=== PATIENT | male | born 1940 | race Caucasian/White ===

== ENCOUNTER → 2020-06-20 | Outpatient (CLI) | payer MEDICARE, OTHER ==
[~2020-06-20] MED LIST: ALPRAZOLAM0.5 MG PO; ASPIRIN CHEWABL81 MG PO; B COMPLEX1 EACH PO; BETAPACE 80MG T80 MG PO; CATAPRES 0.1MG0.1 MG PO; CLARITIN 10MG T10 MG PO; DILTIAZEM 24HR240 M1 PO; ELIQUIS 5 MG TAB5 MG PO; FLOMAX 0.4 MG0.4 MG PO; FLONASE 0.05% N16 GM; HYDRALAZINE HCL50 MG PO; HYDROCHLOROTHIA25 MG PO; HYDROCODONE-AC1 EAC1 PO; ISOSORBIDE MONO30 MG PO; KLOR-CON M1010 MEQ PO; LASIX20 MG PO; LEVAQUIN500 MG PO; LIPITOR TAB 2020 MG PO; MEGACE TAB 40 M40 MG PO; METOPROLOL SUCC25 MG PO; NITROSTAT0.4 MG SL; OMEPRAZOLE20 MG PO; PHILLIPS' LAXA100 MG PO; PROBIOTIC1 EAC1 PO; RA SENNA PLUS1 EACH PO; STRESS FORMULA1 EACH PO; TYLENOL W/CODEIN1 E1 PO; VITAMIN D250000 UNIT PO
== END ==
LOC: KOH-I 14:06
DX: R60.9 Edema, unspecified (principal); M79.605 Pain in left leg; R19.01 Right upper quadrant abdominal swelling, mass and lump; Z79.899 Other long term (current) drug therapy; Z01.89 Encounter for other specified special examinations
CPT/HCPCS: 93971

== ENCOUNTER → 2020-08-17 | Outpatient (CLI) | payer MEDICARE, OTHER ==
[~2020-08-17] VITALS: Ht 170.2 cm; Wt 65.8 kg
== END ==
LOC: OPSV 10:24
DX: E87.6 Hypokalemia (principal)
CPT/HCPCS: 84132; 96365; 96366; J3480

== ENCOUNTER 2020-09-25 12:35 | Inpatient (IN) | payer MEDICARE, OTHER ==
[~2020-09-25] VITALS: Ht 170.2 cm; Wt 60.5 kg
[~2020-09-25 12:35] MED LIST changes: -HYDROCODONE-AC1 EAC1 PO; -KLOR-CON M1010 MEQ PO; -LASIX20 MG PO; -MEGACE TAB 40 M40 MG PO
[2020-09-25 14:38] LABS: RED BLOOD COUNT 4.34 M/UL (4.20-5.50); WHITE BLOOD COUNT 8.6 K/UL (4.5-11.0)
[2020-09-25] MEDS ORDERED: MEGACE TAB 40 M40 MG PO (20:58)
[2020-09-25] MEDS ORDERED: HYDROCODONE-AC1 EAC1 PO (21:00)
--- NOTE | 2020-09-25 21:13 | NUR ---
2104- CONTACTED JENNIFER TRACTOR OPERATOR TO GET A TELE BOX TO PLACE PT ON TELEMETRY MONITORING. JENNIFER NOTIFIED ME THAT THE HOSPITAL IS CURRENTLY OUT OF TELE BOXES. NOTIFIED LATIN DANCER. AWAITING TELE BOX AT THIS TIME.
[2020-09-26 04:24] LABS: HEMOGLOBIN 11.9 gm/dl (14.0-17.5); RED BLOOD COUNT 3.93 M/UL (4.20-5.50); WHITE BLOOD COUNT 7.5 K/UL (4.5-11.0)
[2020-09-27 06:02] LABS: HEMOGLOBIN 12.8 gm/dl (14.0-17.5); RED BLOOD COUNT 4.29 M/UL (4.20-5.50); WHITE BLOOD COUNT 11.4 K/UL (4.5-11.0)
[2020-09-27 06:45] LABS: BUN/CREATININE RATIO 15 (0-10)
[2020-09-27] MEDS ORDERED: KLOR-CON M1010 MEQ PO (11:18)
== END 2020-09-27 12:21 | disposition home or self-care (01) | DRG 682 ==
LOC: ER1 12:35 → MED SURG 4 16:05 → CDU 16:05 → MED SURG 4 20:18
PROVIDERS: Physician Assistant; ADMIT Internal Medicine
DX: N17.9 Acute kidney failure, unspecified (principal); E43 Unspecified severe protein-calorie malnutrition; C64.9 Malignant neoplasm of unspecified kidney, except renal pelvis; E87.6 Hypokalemia; E83.42 Hypomagnesemia; I10 Essential (primary) hypertension; I48.0 Paroxysmal atrial fibrillation; E78.5 Hyperlipidemia, unspecified; Z95.0 Presence of cardiac pacemaker; Z68.20 Body mass index [BMI] 20.0-20.9, adult; Z20.822 Contact with and (suspected) exposure to COVID-19; R19.7 Diarrhea, unspecified
CPT/HCPCS: 36415; 36591; 71045; 80048; 80053; 81001; 83735; 84100; 84132; 85025; 87449; 93005; 96365; 99285; J2405; J3480; U0002

== ENCOUNTER → 2020-10-15 | Outpatient (CLI) | payer MEDICARE, OTHER ==
[~2020-10-15] MED LIST changes: +HYDROCODONE-AC1 EAC1 PO; +KLOR-CON M1010 MEQ PO; +LASIX20 MG PO; +MEGACE TAB 40 M40 MG PO
== END ==
LOC: CT 08:06
DX: Z01.89 Encounter for other specified special examinations (principal); R19.01 Right upper quadrant abdominal swelling, mass and lump; R19.09 Other intra-abdominal and pelvic swelling, mass and lump; C74.91 Malignant neoplasm of unspecified part of right adrenal gland; N28.89 Other specified disorders of kidney and ureter; Z79.899 Other long term (current) drug therapy
CPT/HCPCS: 71260; Q9967

== ENCOUNTER 2020-10-23 16:36 | Emergency (ER) | payer MEDICARE, OTHER ==
[~2020-10-23 16:36] MED LIST changes: -LASIX20 MG PO
[2020-10-23 20:20] LABS: HEMOGLOBIN 12.6 gm/dl (14.0-17.5); RED BLOOD COUNT 4.12 M/UL (4.20-5.50); WHITE BLOOD COUNT 8.3 K/UL (4.5-11.0)
[2020-10-23 21:16] LABS: BUN/CREATININE RATIO 11 (0-10)
[2020-10-23] MEDS ORDERED: KLOR-CON M1010 MEQ PO (22:06)
== END 2020-10-23 23:05 | disposition home or self-care (01) ==
LOC: ER1 16:36
PROVIDERS: Student in an Organized Health Care Education/Training Program
DX: E87.6 Hypokalemia (principal); E83.42 Hypomagnesemia; I25.10 Atherosclerotic heart disease of native coronary artery without angina pectoris; I10 Essential (primary) hypertension
CPT/HCPCS: 80053; 82550; 82553; 82803; 83735; 83874; 84100; 84484; 85025; 93005; 96365; 96375; 96376; 99285; J3475; J3480; J7070

== ENCOUNTER 2020-10-30 08:10 | Emergency (ER) | payer MEDICARE, OTHER ==
[2020-10-30 09:21] LABS: HEMOGLOBIN 12.9 gm/dl (14.0-17.5); RED BLOOD COUNT 4.17 M/UL (4.20-5.50); WHITE BLOOD COUNT 7.5 K/UL (4.5-11.0)
[2020-10-30 09:53] LABS: BUN/CREATININE RATIO 12 (0-10)
== END 2020-10-30 13:00 | disposition home or self-care (01) ==
LOC: ER1 08:10
PROVIDERS: Emergency Medicine
DX: I47.1 Supraventricular tachycardia (principal); I10 Essential (primary) hypertension; Z20.822 Contact with and (suspected) exposure to COVID-19; Z95.1 Presence of aortocoronary bypass graft; Z85.528 Personal history of other malignant neoplasm of kidney
CPT/HCPCS: 0240U; 71045; 80053; 82550; 82553; 83605; 83690; 83735; 84484; 85025; 85610; 85730; 93005; 99285; J0153; Q9967

== ENCOUNTER 2020-12-10 13:08 | Emergency (ER) | payer MEDICARE, OTHER ==
[2020-12-10 14:10] LABS: HEMOGLOBIN 10.8 gm/dl (14.0-17.5); RED BLOOD COUNT 3.37 M/UL (4.20-5.50); WHITE BLOOD COUNT 7.2 K/UL (4.5-11.0)
[2020-12-10 14:35] LABS: BUN/CREATININE RATIO 9 (0-10)
[2020-12-10] MEDS ORDERED: LASIX20 MG PO (16:45)
== END 2020-12-10 17:15 | disposition home or self-care (01) ==
LOC: ER1 13:08
PROVIDERS: Family Medicine
DX: R60.0 Localized edema (principal); N28.89 Other specified disorders of kidney and ureter
CPT/HCPCS: 71046; 80053; 82550; 82553; 83874; 83880; 84484; 85025; 93005; 96374; 99284; J1940; Q9967

== ENCOUNTER → 2020-12-20 | Outpatient (CLI) | payer MEDICARE, OTHER ==
[~2020-12-20] MED LIST changes: +LASIX20 MG PO
[2020-12-20 08:08] LABS: RED BLOOD COUNT 3.07 M/UL (4.20-5.50)
[2020-12-20 08:32] LABS: BUN/CREATININE RATIO 7 (0-10)
== END ==
LOC: CT 07:45
PROVIDERS: Internal Medicine Hematology & Oncology
DX: Z01.89 Encounter for other specified special examinations (principal); R19.09 Other intra-abdominal and pelvic swelling, mass and lump; R19.01 Right upper quadrant abdominal swelling, mass and lump; K44.9 Diaphragmatic hernia without obstruction or gangrene; E27.9 Disorder of adrenal gland, unspecified; K22.8 Other specified diseases of esophagus; N28.89 Other specified disorders of kidney and ureter; K63.89 Other specified diseases of intestine; Z79.899 Other long term (current) drug therapy
CPT/HCPCS: 36415; 71260; 80053; 85025; Q9967

== ENCOUNTER → 2021-01-08 | Outpatient (CLI) | payer MEDICARE, OTHER | LOC: HEART 5 09:22 | DX: R60.9 Edema, unspecified (principal); R00.2 Palpitations; I08.1 Rheumatic disorders of both mitral and tricuspid valves | CPT/HCPCS: 93306 ==

== ENCOUNTER → 2021-02-21 | Outpatient (CLI) | payer MEDICARE, OTHER ==
[2021-02-21 10:22] LABS: HEMOGLOBIN 10.8 gm/dl (14.0-17.5); RED BLOOD COUNT 3.49 M/UL (4.20-5.50)
[2021-02-21 10:52] LABS: BUN/CREATININE RATIO 12 (0-10)
== END ==
LOC: CT 09:44
PROVIDERS: Internal Medicine Hematology & Oncology
DX: R19.01 Right upper quadrant abdominal swelling, mass and lump (principal); R19.09 Other intra-abdominal and pelvic swelling, mass and lump; Z79.899 Other long term (current) drug therapy
CPT/HCPCS: 36415; 71260; 80053; 83615; 85025; Q9965

== ENCOUNTER → 2021-05-28 | Outpatient (CLI) | payer MEDICARE, OTHER ==
[2021-05-28 09:02] LABS: HEMOGLOBIN 11.9 gm/dl (14.0-17.5); RED BLOOD COUNT 4.08 M/UL (4.20-5.50); WHITE BLOOD COUNT 8.8 K/UL (4.5-11.0)
[2021-05-28 09:29] LABS: BUN/CREATININE RATIO 15 (0-10)
== END ==
LOC: CT 08:36
PROVIDERS: Internal Medicine Hematology & Oncology
DX: R19.09 Other intra-abdominal and pelvic swelling, mass and lump (principal); R19.01 Right upper quadrant abdominal swelling, mass and lump; K44.9 Diaphragmatic hernia without obstruction or gangrene; K40.90 Unilateral inguinal hernia, without obstruction or gangrene, not specified as recurrent; E27.8 Other specified disorders of adrenal gland; C64.2 Malignant neoplasm of left kidney, except renal pelvis; Z79.899 Other long term (current) drug therapy
CPT/HCPCS: 36415; 71260; 80053; 85025; Q9967

== ENCOUNTER → 2021-08-28 | Outpatient (CLI) | payer MEDICARE, OTHER ==
[2021-08-28 11:32] LABS: HEMOGLOBIN 11.9 gm/dl (14.0-17.5); RED BLOOD COUNT 4.13 M/UL (4.20-5.50); WHITE BLOOD COUNT 10.1 K/UL (4.5-11.0)
== END ==
LOC: CT 10:26
PROVIDERS: Internal Medicine Hematology & Oncology
DX: R19.01 Right upper quadrant abdominal swelling, mass and lump (principal); R19.09 Other intra-abdominal and pelvic swelling, mass and lump; Z79.899 Other long term (current) drug therapy; Z01.89 Encounter for other specified special examinations; N28.89 Other specified disorders of kidney and ureter; M47.816 Spondylosis without myelopathy or radiculopathy, lumbar region; E27.9 Disorder of adrenal gland, unspecified; N28.1 Cyst of kidney, acquired
CPT/HCPCS: 36415; 80053; 85025; Q9965

== ENCOUNTER → 2021-12-04 | Outpatient (CLI) | payer MEDICARE, OTHER ==
[2021-12-04 10:19] LABS: HEMOGLOBIN 11.1 gm/dl (14.0-17.5); RED BLOOD COUNT 3.85 M/UL (4.20-5.50)
[2021-12-04 10:43] LABS: BUN/CREATININE RATIO 19 (0-10)
== END ==
LOC: CT 09:52
PROVIDERS: Internal Medicine Hematology & Oncology
DX: Z01.89 Encounter for other specified special examinations (principal); R19.09 Other intra-abdominal and pelvic swelling, mass and lump; R19.01 Right upper quadrant abdominal swelling, mass and lump; Z79.899 Other long term (current) drug therapy
CPT/HCPCS: 36415; 71260; 80053; 85025; Q9967

== ENCOUNTER 2021-12-21 13:14 | Emergency (ER) | payer MEDICARE, OTHER, MEDICAID ==
[2021-12-21 15:05] LABS: HEMOGLOBIN 12.5 gm/dl (14.0-17.5); RED BLOOD COUNT 4.39 M/UL (4.20-5.50); WHITE BLOOD COUNT 4.1 K/UL (4.5-11.0)
[2021-12-21 15:36] LABS: BUN/CREATININE RATIO 17 (0-10)
== END 2021-12-21 19:15 | disposition home or self-care (01) ==
LOC: ER1 13:14
PROVIDERS: Family Medicine
DX: S09.90XA Unspecified injury of head, initial encounter (principal); E86.0 Dehydration; E87.6 Hypokalemia; F12.90 Cannabis use, unspecified, uncomplicated; Z79.01 Long term (current) use of anticoagulants; F19.90 Other psychoactive substance use, unspecified, uncomplicated; F41.9 Anxiety disorder, unspecified; C64.2 Malignant neoplasm of left kidney, except renal pelvis; C79.71 Secondary malignant neoplasm of right adrenal gland; Z87.891 Personal history of nicotine dependence; W01.10XA Fall on same level from slipping, tripping and stumbling with subsequent striking against unspecified object, initial encounter
CPT/HCPCS: 70450; 80053; 80307; 81001; 82550; 82553; 83605; 83735; 84439; 84443; 84484; 85025; 93005; 99285

== ENCOUNTER 2021-12-31 15:33 | Emergency (ER) | payer MEDICARE, OTHER ==
[~2021-12-31] VITALS: Ht 165.1 cm; Wt 59.0 kg
[2021-12-31 16:46] LABS: HEMOGLOBIN 13.3 gm/dl (14.0-17.5); RED BLOOD COUNT 4.69 M/UL (4.20-5.50); WHITE BLOOD COUNT 11.8 K/UL (4.5-11.0)
[2021-12-31 17:16] LABS: BUN/CREATININE RATIO 20 (0-10)
== END 2021-12-31 22:15 | disposition home or self-care (01) ==
LOC: ER1 15:33
PROVIDERS: Physician Assistant
DX: U07.1 COVID-19 (principal); E78.5 Hyperlipidemia, unspecified; I11.9 Hypertensive heart disease without heart failure; Z85.528 Personal history of other malignant neoplasm of kidney; Z95.0 Presence of cardiac pacemaker; Z85.118 Personal history of other malignant neoplasm of bronchus and lung
CPT/HCPCS: 71045; 80053; 82550; 82553; 84484; 85025; 93005; 99285; M0222; U0002